=== PATIENT | female | born 1965 | race Caucasian/White ===

== ENCOUNTER 2019-02-02 11:12 | Emergency (ER) | payer BC ==
[~2019-02-02] VITALS: Ht 165.1 cm; Wt 61.2 kg
[2019-02-02 11:19] VITALS: BP_SYST 108
--- NOTE | 2019-02-02 11:27 | NUR ---
Placed in room 4. To gown for exam. Side rails up. Report given to ITZEL Rubi.
--- NOTE | 2019-02-02 11:37 | NUR ---
ER at bedside examining patient.
--- NOTE | 2019-02-02 11:40 | NUR ---
Patient arrived in the ED c/o vaginal bleeding that started yesterday - soaking 1 pad every 3hrs. Denied any fevers, pain, or chills. Denied any recent trauma or falls. Patient is alert and oriented x4, respirations even and unlabored, speaking in full sentences, ambulating with a steady gait. VS WNL. Denied any respiratory distress at this time. Son at bedside. Informed of the wait time. Instructed to notify ED staff for any changes in condition while waiting to be seen by a provider. Patient verbalized understanding.
--- NOTE | 2019-02-02 11:43 | NUR ---
Patient ambulated to the bathroom with a steady gait. Urine specimen collected.
[2019-02-02 12:05] LABS: BASOPHILS % (AUTO) 0.4 % (0.0-2.0); HEMATOCRIT 31.8 % (36-48); HEMOGLOBIN 10.5 g/dL (12.0-16.0); LYMPHOCYTES # (AUTO) 0.3 K/uL (1.0-5.5); LYMPHOCYTES % (AUTO) 4.8 % (20.5-51.5); MEAN CORPUSCULAR HEMOGLOBIN 27 pg (27-31); MEAN CORPUSCULAR HGB CONC 33 % (32-36); MEAN CORPUSCULAR VOLUME 82 fL (79.0-98.0); MONOCYTES # (AUTO) 0.3 K/uL (0.0-1.0); MONOCYTES % (AUTO) 4.6 % (1.7-9.3); NEUTROPHILS # (AUTO) 6.2 K/uL (1.8-7.7); NEUTROPHILS % (AUTO) 90.2 % (40.0-70.0); PLATELET COUNT (AUTO) 350 K/uL (130-430); RED CELL DISTRIBUTION WIDTH 19.8 % (9.0-15.0); WHITE BLOOD COUNT (AUTO) 6.9 K/uL (4.8-10.8)
--- NOTE | 2019-02-02 12:05 | NUR ---
Blood specimen collected at bedside. Patient tolerated the procedure well.
--- NOTE | 2019-02-02 12:16 | NUR ---
Patient taken to Ultrasound via wheelchair, in stable condition.
[2019-02-02 12:20] LABS: CALCIUM 8.6 mg/dL (8.4-11.0); CREATININE 0.55 mg/dL (0.55-1.30); POTASSIUM 3.8 mmol/L (3.5-5.1)
[2019-02-02 12:25] LABS: ALBUMIN 3.7 g/dL (3.4-4.8); TOTAL BILIRUBIN 1.6 mg/dL (0.0-1.0)
--- NOTE | 2019-02-02 12:30 | NUR ---
Patient back from Ultrasound in stable condition.
--- NOTE | 2019-02-02 12:53 | NUR ---
Report given and care transferred to ITZEL Jane.
[2019-02-02 13:38] VITALS: BP_SYST 108
--- NOTE | 2019-02-02 13:40 | NUR ---
Patient given written and verbal discharge instructions and verbalizes understanding. ER MD discussed with patient the results and treatment provided. Patient in stable condition. ID arm band removed. Rx of Provera given. Patient educated on pain management and to follow up with PMD. Pain Scale 0/10. Opportunity for questions provided and answered. Medication side effect fact sheet provided.
== END 2019-02-02 13:38 | disposition home or self-care (01) ==
LOC: SED 11:12
DX: D25.9 Leiomyoma of uterus, unspecified (principal); N93.9 Abnormal uterine and vaginal bleeding, unspecified
CPT/HCPCS: 36415; 76830-TC; 76857; 80053; 85025; 99284

== ENCOUNTER 2020-01-30 02:07 | Emergency (ER) | payer BC ==
[~2020-01-30] VITALS: Ht 154.9 cm; Wt 59.0 kg
[2020-01-30 02:19] VITALS: BP_SYST 129
--- NOTE | 2020-01-30 02:19 | NUR ---
Patient to ER bed 7 to gown for evaluation. Side rails up. Report given to JEN.
--- NOTE | 2020-01-30 02:20 | NUR ---
PT AAO AND AMBULATORY REPORTING LEG CRAMPING X 3 DAYS THAT IS WORSENING. PT CURRENTLY REPORTS 8/10 PAIN AND PT IS COVID POSITIVE.
--- NOTE | 2020-01-30 02:30 | NUR ---
ER Dr. MEJIA at bedside examining patient.
[2020-01-30 03:11] LABS: BILIRUBIN,URINE NEGATIVE (NEGATIVE); BLOOD, URINE NEGATIVE (NEGATIVE); CLARITY/URINE CLEAR (CLEAR); COLOR,URINE YELLOW (YELLOW); GLUCOSE,URINE NEGATIVE (NEGATIVE); KETONES,URINE NEGATIVE (NEGATIVE); LEUKOCYTE ESTERASE ,URINE NEGATIVE (NEGATIVE); NITRITE, URINE NEGATIVE (NEGATIVE); PROTEIN URINE NEGATIVE (NEGATIVE); UROBILINOGEN,URINE 0.2 (0.2-1.0)
--- NOTE | 2020-01-30 03:40 | NUR ---
BLOOD DRAWN PER LAB
[2020-01-30 03:58] LABS: BASOPHILS % (AUTO) 0.6 % (0.0-2.0); EOSINOPHILS # (AUTO) 0.1 K/uL (0.0-0.4); EOSINOPHILS % (AUTO) 1.5 % (0.0-4.0); HEMATOCRIT 38.3 % (36-48); HEMOGLOBIN 12.8 g/dL (12.0-16.0); LYMPHOCYTES # (AUTO) 1.4 K/uL (1.0-5.5); LYMPHOCYTES % (AUTO) 24.3 % (20.5-51.5); MEAN CORPUSCULAR HEMOGLOBIN 31 pg (27-31); MEAN CORPUSCULAR HGB CONC 33 % (32-36); MEAN CORPUSCULAR VOLUME 92 fL (79.0-98.0); MONOCYTES # (AUTO) 0.9 K/uL (0.0-1.0); MONOCYTES % (AUTO) 15.8 % (1.7-9.3); NEUTROPHILS # (AUTO) 3.4 K/uL (1.8-7.7); NEUTROPHILS % (AUTO) 57.8 % (40.0-70.0); PLATELET COUNT (AUTO) 499 K/uL (130-430); RED BLOOD CELL COUNT(AUTO) 4.15 MIL/uL (4.2-6.2); RED CELL DISTRIBUTION WIDTH 13.1 % (9.0-15.0); WHITE BLOOD COUNT (AUTO) 5.8 K/uL (4.8-10.8)
--- NOTE | 2020-01-30 04:03 | NUR ---
REPORT GIVEN TO ITZEL SORENSEN
[2020-01-30 04:04] LABS: CALCIUM 9.4 mg/dL (8.4-11.0); CREATININE 0.6 mg/dL (0.55-1.30); POTASSIUM 4.4 mmol/L (3.5-5.1)
[2020-01-30 04:15] LABS: ALBUMIN 3.3 g/dL (3.4-4.8); TOTAL BILIRUBIN 0.6 mg/dL (0.0-1.0)
--- NOTE | 2020-01-30 05:03 | NUR ---
Patient given written and verbal discharge instructions and verbalizes understanding. ER MD discussed with patient the results and treatment provided. Patient in stable condition. ID arm band removed. IV catheter removed intact and dressing applied, no active bleeding. Rx of mirapex given. Patient educated on pain management and to follow up with PMD. Pain Scale 0/10. Opportunity for questions provided and answered. Medication side effect fact sheet provided.
[2020-01-30 05:04] VITALS: BP_SYST 128
== END 2020-01-30 05:03 | disposition home or self-care (01) ==
LOC: SED 02:07
DX: R25.2 Cramp and spasm (principal)
CPT/HCPCS: 36415; 80053; 81003; 85025; 85379; 99283